=== PATIENT | female | born 1970 | race Caucasian/White ===

== ENCOUNTER 2022-09-23 07:14 | Emergency (ER) | payer OTHER, SELFPAY ==
[2022-09-23 07:30] VITALS: BP 144/91; PULSE 72; RESP 18; TEMP 36.5; O2SAT 97; BMI 26.9
--- NOTE | 2022-09-23 07:59 | CRLHL7_ITS ---
For Patients: As a result of the Century Cures Act, medical imaging exams and procedure reports are released immediately into your electronic medical record. You may view this report before your referring provider. If you have questions, please contact your health care provider. INDICATION: Left-sided flank pain radiating to the back. Hematuria. History of renal stones. COMPARISON: None TECHNIQUE: CT examination of the abdomen and pelvis was performed following the uneventful intravenous administration of 84 cc of Isovue 370. Thin section axial images were obtained from the lung bases through the pubic symphysis. Oral contrast was not administered. Please note that all CT scans at this facility use dose modulation, iterative reconstruction, and/or weight-based dosing when appropriate to reduce radiation dose to as low as reasonably achievable. FINDINGS: LUNG BASES: Linear opacities at the lung bases are likely related to atelectasis. The heart size is normal at the lung bases. LIVER/BILIARY SYSTEM:Hepatic steatosis. 2 centimeter cyst in the right lobe. Additional tiny lesions too small to characterize but likely benign. No biliary ductal dilatation. The gallbladder appears normal. ADRENALS: Normal KIDNEYS, URETERS and BLADDER:Low-density bilateral renal lesions consistent with cysts. Intrarenal calculi bilaterally. Right-sided obstructive uropathy due to a 6 millimeter calculus near the right ureterovesical junction. No left-sided obstructive uropathy. No calculi within the bladder. SPLEEN:Normal appearance. PANCREAS: Appears normal. RETROPERITONEUM and MESENTERY: There is no mass, adenopathy or aortic aneurysm. GASTROINTESTINAL SYSTEM: There is no evidence of diverticulitis, colitis, mechanical obstruction, or appendicitis. The small bowel as visualized appears normal. PELVIS: No mass, adenopathy or free fluid. OSSEOUS STRUCTURES and ABDOMINAL WALL: There is an age-appropriate appearance of the osseous structures.No significant abdominal wall defect. OTHER: No free fluid or free air. IMPRESSION: Intrarenal calculi bilaterally. RIGHT-sided obstructive uropathy due to a 6 millimeter calculus near the right ureterovesical junction. No LEFT-sided obstructive uropathy. Please note that all CT scans at this facility use dose modulation, iterative reconstruction, and/or weight-based dosing when appropriate to reduce radiation dose to as low as reasonably achievable. Dictated by Igor Boudreaux MD @ 09/23/2022 9:30:51 AM (Electronically Signed)
--- NOTE | 2022-09-23 08:02 | ED.GENADULT ---
HPI - General Adult General Chief complaint: Abdominal Pain Stated complaint: Abdominal Pain/radiates to back Time Seen by Provider: 09/23/22 08:18 History of Present Illness HPI narrative: 52-year-old woman presenting to the emergency department with continued right abdominal area pain. She has also noticed hematuria intermittently over the last month. No dysuria frequency urgency. She does note a history of kidney stones as well as dystonia where will have tense muscles and burning pain in response to some other stimulus. This pain seems to move in different locations throughout the right side of her abdomen as she demonstrates and into the flank. She is not describing any swollen joints. She is not having the radiating pain down into her groin that she might expect with a kidney stone nor any nausea. Did take some ibuprofen this morning which maybe helps a little bit. No fevers. She is status post hysterectomy and bilateral oophorectomy. Other than the ibuprofen no exacerbating or relieving factors., bending stooping twisting does not change her discomfort. No radiation down her legs. Denies constipation. Related Data Previous Rx's Medication Instructions Recorded oxycodone 5 mg tablet 5 mg PO TID PRN pain #10 tabs 09/23/22 tamsulosin 0.4 mg capsule (Flomax) 0.4 mg PO DAILY #14 caps 09/23/22 Allergies Allergy/AdvReac Type Severity Reaction Status Date / Time No Known Drug Allergies Allergy Verified 09/23/22 07:30 Review of Systems Status of ROS: Reports: 6 or more systems reviewed and unremarkable except as noted in History and below [facility] Social History Smoking Status: Never smoker Do you use any of these nicotine containing products: None Second hand tobacco smoke exposure: No How often do you have a drink containing alcohol: never How often do you have six or more drinks on one occasion: Never AUDIT-C Alcohol total score: 0 Non-prescribed substance use: denies use service: No Exam Narrative: Exam Narrative: Pleasant. NAD. Breathing easily. Neck is supple. Cranial nerves 2-12 look to be intact. Lungs are clear. Heart in a regular rate and rhythm. Abdomen with normoactive bowel sounds is soft and not particularly tender. Certainly no peritoneal signs. I felt that maybe she anticipated some discomfort to palpation in the mid right abdomen. There is no flank tenderness. She is tender to firmer palpation in the right SI joint clearly so however negative compression testing and negative Lianne's. Moving all extremities without difficulty including independent elevation of legs from the bed does not exacerbate low back discomfort. Const: Vital Signs, click to edit/add: Vital Signs - 24 hr 09/23/22 07:30 Temperature 97.7 F Pulse Rate [Pulse Oximeter] 72 Respiratory Rate 18 Blood Pressure [Ri t Upper Arm] 144/91 H Pulse Oximetry 97 Oxygen Delivery Me thod Room Air Course Course Hospital Course: Patient was seen primarily by Dr. Martinez. She was signed out to me to follow up on her CT. I did review her labs all of which are unremarkable. UA does not show any evidence of infection. Her CT scan by my review showed evidence of hydronephrosis and a 6 mm distal ureteral stone. The final radiology report is as follows: IMPRESSION: Intrarenal calculi bilaterally. RIGHT-sided obstructive uropathy due to a 6 millimeter calculus near the right ureterovesical junction. No LEFT-sided obstructive uropathy. I have reviewed all of this with the patient. She is feeling relatively comfortable at this time but I did give her some Toradol IV. I think it is reasonable to discharge her home with outpatient urology follow-up. Did review with her that this stone is large enough it will likely need attention. I will prescribe some Flomax, have her push fluids, strain urine. Outpatient urology follow-up recommended and I gave her the number to schedule that appointment. If in the interim at any time she has severe uncontrolled pain new symptoms such as fever, vomiting, shaking chills, return to the emergency department for re-evaluation. Recommend ibuprofen 400 mg 3 times daily with food, and I prescribed oxycodone if needed for uncontrolled pain. Vital Signs Vital signs: Initial Vital Signs Temperature 97.7 F 09/23/22 07:30 Temperature Source Temporal Artery Scan 09/23/22 07:30 Pulse Rate 72 09/23/22 07:30 Pulse Rhythm 09/23/22 07:30 Respiratory Rate 18 09/23/22 07:30 Blood Pressure 144/91 H 09/23/22 07:30 Blood Pressure Mean 108 09/23/22 07:30 Blood Pressure Position Supine 09/23/22 07:30 Pulse Oximetry 97 09/23/22 07:30 Oxygen Delivery Method 09/23/22 07:30 Vital Signs Temperature 97.7 F 09/23/22 07:30 Pulse Rate 72 09/23/22 07:30 Respiratory Rate 18 09/23/22 07:30 Blood Pressure 144/91 H 09/23/22 07:30 Pulse Oximetry 97 09/23/22 07:30 Oxygen Delivery Method 09/23/22 07:30 Temperature 97.7 F 09/23/22 07:30 Pulse Rate 72 09/23/22 07:30 Respiratory Rate 18 09/23/22 07:30 Blood Pressure 144/91 H 09/23/22 07:30 Pulse Oximetry 97 09/23/22 07:30 Oxygen Delivery Method 09/23/22 07:30 Medical Decision Making MDM Narrative Medical decision making narrative: Does not feel she needs anything for pain at this point. IV will be established. I think this would be a difficult diagnosis to make. I discussed perhaps doing larger evaluation including imaging to perhaps identify stone but also to rule a number of things out. The migrating nature of burning pain she describes I think does not correlate with anything in particular. Only clearly reproducible pain was in her right SI joint. Lab Data Labs: Lab Results 09/23/22 09/23/22 09/23/22 Range/Units 08:22 08:22 08:42 WBC 5.96 (4.50-11.00) K/uL RBC 4.44 (4.00-5.20) m/uL Hgb 13.3 (12.0-16.0) gm/dL Hct 39.5 (33.0-51.0) % MCV 89 (80-100) fL MCH 30 (26-34) pg MCHC 34 (32-36) gm/dL RDW Coeff of Evelyn 12.2 (11.5-15.5) % Plt Count 318 (140-440) K/uL Neut % (Auto) 63.9 (42.0-72.0) % Lymph % (Auto) 27.5 (20-44) % Cross % (Auto) 6.7 (0.0-11.0) % Eos % (Auto) 0.8 (0.0-7.0) % Baso % (Auto) 0.3 (0.0-3.0) % Neut # (Auto) 3.80 (1.7-7.0) K/uL Lymph # (Auto) 1.64 (0.90-2.90) K/uL Cross # (Auto) 0.40 (0.00-0.90) K/UL Eos # (Auto) 0.05 (0.00-0.50) K/uL Baso # (Auto) 0.02 (0.00-0.30) K/uL Sodium 143 (135-149) mmol/L Potassium 3.8 (3.6-5.1) mmol/L Chloride 109 (96-114) mmol/L Carbon Dioxide 28 (20-32) mmol/L BUN 13 (7-30) mg/dL Creatinine 0.8 (0.5-1.5) mg/dL Estimated Creat Clear 78.18 Estimated GFR 88 ml/min Glucose 99 (60-115) mg/dL Calcium 9.1 (8.4-10.6) mg/dL Total Bilirubin 0.7 (0.1-1.5) mg/dL Direct Bilirubin 0.1 (0.0-0.5) mg/dL AST 21 (12-35) U/L ALT 9 (4-35) U/L Alkaline Phosphatase 96 (40-150) U/L C-Reactive Protein 1.5 H (0.5-1.0) mg/dL Total Protein 7.0 (6.0-8.3) g/dL Albumin 4.1 (3.3-5.0) g/dL Urine Color Yellow (Yellow) Urine Appearance Clear (Clear) Urine pH 7.0 (5.0-8.5) Ur Specific [place] 1.015 (1.000-1.030) Urine Protein Negative (Negative) Urine Glucose (UA) Negative (Negative) Urine Ketones Negative (Negative) Urine Blood 2+ A (Negative) Urine Nitrite Negative (Negative) Urine Bilirubin Negative (Negative) Urine Urobilinogen 0.2 (0.2-1.0) Ur Leukocyte Esterase Negative (Negative) Urine RBC 2-5 A (0-2) Urine WBC 0-2 (0-5) Ur Squamous Epith Cells None (None-Few) Urine Bacteria None (None) Discharge Plan Discharge Clinical Impression: Calculus of distal right ureter Patient Disposition: Home, Self-Care Condition: Improved Instructions: Ureteral Stones (ED) Additional Instructions: Ibuprofen 400 mg 3 times daily with food. Oxycodone if needed. Zofran if needed for nausea. Flomax as prescribed. Strain urine. Urology follow-up in the next couple of weeks, call [phone] to schedule. If at any time in the meantime you have severe uncontrolled pain, fever, shaking chills, vomiting or other worsening, return to the emergency department. Prescriptions: New tamsulosin [Flomax] 0.4 mg capsule 0.4 mg PO DAILY Qty: 14 2RF oxycodone 5 mg tablet 5 mg PO TID PRN (Reason: pain) Qty: 10 0RF Follow Up/Referrals: Provider,Not a Local [Primary Care Provider] - Stand Alone Forms: [employer] Info Instructions
[2022-09-23 08:30] LABS: Basophils Absolute Auto 0.02 K/uL (0.00-0.30); Basophils Percent Auto 0.3 % (0.0-3.0); Eosinophils Absolute Auto 0.05 K/uL (0.00-0.50); Eosinophils Percent Auto 0.8 % (0.0-7.0); Hematocrit 39.5 % (33.0-51.0); Hemoglobin* 13.3 gm/dL (12.0-16.0); Immature Granulocytes Abs Auto 0.05 K/uL (0.00-0.30); Immature Granulocytes Pct Auto 0.8 %; Lymphocytes Absolute Auto 1.64 K/uL (0.90-2.90); Lymphocytes Percent Auto 27.5 % (20-44); Mean Corpuscular HGB Conc 34 gm/dL (32-36); Mean Corpuscular Hemoglobin 30 pg (26-34); Mean Corpuscular Volume 89 fL (80-100); Monocytes Percent Auto 6.7 % (0.0-11.0); Neutrophils Percent Auto 63.9 % (42.0-72.0); Platelet Count* 318 K/uL (140-440); RDW Coefficient of Variation % 12.2 % (11.5-15.5); Red Blood Count 4.44 m/uL (4.00-5.20); White Blood Count* 5.96 K/uL (4.50-11.00)
[2022-09-23 08:31] LABS: Slide Review Reflex No
[2022-09-23 08:42] LABS: Albumin* 4.1 g/dL (3.3-5.0); Chloride* 109 mmol/L (96-114)
[2022-09-23 08:43] LABS: Potassium* 3.8 mmol/L (3.6-5.1); Sodium* 143 mmol/L (135-149)
[2022-09-23 08:45] LABS: Creatinine* 0.8 mg/dL (0.5-1.5); Est. Creatinine Clearance* 78.18; Estimated Glomerular Filt Rate 88 ml/min
[2022-09-23 08:46] LABS: Alanine Aminotransferase* 9 U/L (4-35); Alkaline Phosphatase* 96 U/L (40-150); Aspartate Amino Transferase* 21 U/L (12-35); Bilirubin Direct* 0.1 mg/dL (0.0-0.5); Bilirubin Total* 0.7 mg/dL (0.1-1.5); Blood Urea Nitrogen* 13 mg/dL (7-30); Calcium* 9.1 mg/dL (8.4-10.6); Carbon Dioxide* 28 mmol/L (20-32); Glucose* 99 mg/dL (60-115)
[2022-09-23 08:48] LABS: C Reactive Protein* 1.5 mg/dL (0.5-1.0)
[2022-09-23 08:55] LABS: Appearance Urine Clear (Clear); Bilirubin Urine Negative (Negative); Blood Urine 2+ (Negative); Color Urine Yellow (Yellow); Glucose Urine Negative (Negative); Ketones Urine Negative (Negative); Leukocyte Esterase Urine Negative (Negative); Nitrite Urine Negative (Negative); Protein Urine Negative (Negative); Specific Gravity Urine 1.015 (1.000-1.030); Urobilinogen Urine 0.2 (0.2-1.0)
[2022-09-23 08:58] LABS: WBC Urine 0-2 (0-5)
[2022-09-23] MEDS: 0.9 % SODIUM CHLORIDE 1000 ml 1,000 ML IV (09:05)
[2022-09-23] MEDS: KETOROLAC 15 MG/ML inj IVP (10:00)
== END 2022-09-23 10:54 | disposition home or self-care (01) ==
PROVIDERS: Family Medicine; Emergency Provider Emergency Medicine
DX: N20.1 Calculus of ureter (principal)
CPT/HCPCS: 36415; 74177; 80048; 80076; 81001; 85025; 86140; 96374; 99284; J1885; J7030; Q9967